=== PATIENT | male | born 2000 | race Caucasian/White ===

== ENCOUNTER 2023-03-11 12:36 | Emergency (ER) | payer BC, OTHER, SELFPAY ==
[2023-03-11 12:56] VITALS: BP 114/79; PULSE 72; RESP 20; TEMP 36.9; O2SAT 98; BMI 24.7
--- NOTE | 2023-03-11 13:23 | CRLHL7_ITS ---
For Patients: As a result of the Century Cures Act, medical imaging exams and procedure reports are released immediately into your electronic medical record. You may view this report before your referring provider. If you have questions, please contact your health care provider. INDICATION: Headache. TECHNIQUE: Noncontrast CT of the head with multiplanar reformat in bone and soft tissue algorithms. COMPARISON: None available. FINDINGS: No acute intracranial hemorrhage. The daly-white matter interface is preserved. The ventricles are normal in size. The skull base and calvarium are within normal limits. Orbits are unremarkable. Paranasal sinuses and mastoid air cells are predominantly clear. IMPRESSION: No acute intracranial abnormality. Please note that all CT scans at this facility use dose modulation, iterative reconstruction, and/or weight-based dosing when appropriate to reduce radiation dose to as low as reasonably achievable. Dictated by Raul Altman MD @ 03/11/2023 2:29:31 PM (Electronically Signed)
--- OUTSIDE RECORDS SUMMARY | 2023-03-11 13:36 | XMS_ITS | Patient Health Record ---
Author Name Unknown Organization [facility] Address [address] [place] [address] Support Name Relationship Address Phone JOSE ALEJANDRO BOLTON Guarantor Unknown ALLERGIES No Known Allergies REASON FOR REFERRAL No Information SOCIAL HISTORY Tobacco Use: Social History Observation Description Date Smoking Status WARNING: Information temporarily unavailable Sex Assigned At : Social History Observation Description Sex Assigned At Unknown Tobacco Use/Smoking Question Answer Notes Are you a nonsmoker PLAN OF TREATMENT No Information Insurance Providers Payer Name Payer Address Payer Phone Subscriber Number Group Number Insured Name Patient Relationship to Insured Coverage Start Date Coverage End Date [facility] [address] [place] [address] [id number] ELIJAH BOLTON Child - Insured has Financial Responsibility
--- NOTE | 2023-03-11 13:52 | ED.GENADULT ---
HPI - General Adult General Date Seen: 03/11/23 Chief complaint: Nausea/Vomiting Stated complaint: vomiting Time Seen by Provider: 03/11/23 13:08 Source: patient Mode of arrival: ambulatory Limitations: no limitations History of Present Illness HPI narrative: Patient is 22 year old male presenting to the emergency department for a headache and nausea/vomiting. Patient states this morning he has developed a headache a neck CT scan worsened describes as the worst headache of his life. States was a 10/10 sharp pain. He took Motrin for it but his nausea was so bad he vomited multiple times since then. States the headache is starting to feel better now but is still severe. Denies ever having headaches like this before. Denies any trauma to his head. Did have a ulnar nerve procedure to his right arm 2 weeks ago with no complications. No other concerns at this time denies fevers, chills, chest pain, shortness of breath, lightheadedness, dizziness, numbness, weakness. Related Data Previous Rx's Medication Instructions Recorded ondansetron 4 mg disintegrating 4 mg PO Q6H #20 tabs 03/11/23 tablet Allergies Allergy/AdvReac Type Severity Reaction Status Date / Time No Known Drug Allergies Allergy Verified 03/04/22 12:42 Review of Systems Status of ROS: Reports: 10 or more systems reviewed and unremarkable except as noted in History and below [facility] Social History Smoking Status: Never smoker Do you use any of these nicotine containing products: None Second hand tobacco smoke exposure: No How often do you have a drink containing alcohol: 2-4 times a month How many standard drinks containing alcohol do you have on a typical day: 3 or 4 How often do you have six or more drinks on one occasion: Less than monthly AUDIT-C Alcohol total score: 4 Non-prescribed substance use: denies use service: No Exam Narrative: Exam Narrative: Const: Well-nourished, Well-developed, in mild distress Eyes: PERRL, no conjunctival injection, and symmetrical lids HENT: Atraumatic external nose and ears. Moist mucous membranes. Neck: Symmetric, trachea midline, No thyromegaly. CVS: RRR, No murmurs or gallops. Peripheral pulses 2+ and equal in all extremities RESP: Unlabored respiratory effort. Clear to auscultation bilaterally. GI: Nontender/Nondistended, No rebound or guarding. MSK:Extremities w/o deformity, Normal Active ROM Skin: Warm, Dry. No rashes or lesions. Neuro: Normal Muscle tone, No focal neurological deficits. Psych: Awake, Alert, & Oriented x3. Appropriate mood and affect. Const: Vital Signs, click to edit/add: Vital Signs - 24 hr 03/11/23 12:56 Temperature 98.4 F Pulse Rate [Pulse Oximeter] 72 Respiratory Rate 20 Blood Pressure [Le ft Upper Arm] 114/79 Pulse Oximetry 98 Oxygen Delivery Me thod Room Air Course Vital Signs Vital signs: Initial Vital Signs Temperature 98.4 F 03/11/23 12:56 Temperature Source Temporal Artery Scan 03/11/23 12:56 Pulse Rate 72 03/11/23 12:56 Pulse Rhythm Regular 03/11/23 12:56 Respiratory Rate 20 03/11/23 12:56 Blood Pressure 114/79 03/11/23 12:56 Blood Pressure Mean 90 03/11/23 12:56 Blood Pressure Position Supine 03/11/23 12:56 Pulse Oximetry 98 03/11/23 12:56 Oxygen Delivery Method Room Air 03/11/23 12:56 Vital Signs Temperature 98.4 F 03/11/23 12:56 Pulse Rate 72 03/11/23 12:56 Respiratory Rate 20 03/11/23 12:56 Blood Pressure 114/79 03/11/23 12:56 Pulse Oximetry 98 03/11/23 12:56 Oxygen Delivery Method Room Air 03/11/23 12:56 Temperature 98.4 F 03/11/23 12:56 Pulse Rate 72 03/11/23 12:56 Respiratory Rate 20 03/11/23 12:56 Blood Pressure 114/79 03/11/23 12:56 Pulse Oximetry 98 03/11/23 12:56 Oxygen Delivery Method Room Air 03/11/23 12:56 Medications Administered Medications: Discontinued Medications Generic Name Dose Route Start Last Admin Trade Name Freq PRN Reason Stop Dose Admin Diphenhydramine HCl 25 mg 03/11/23 13:23 03/11/23 14:03 Diphenhydramine 50 Mg/Ml Inj IVP 03/11/23 13:24 25 mg ONCE ONE Administration Lactated Ringer's 1,000 mls @ 1,000 mls/hr 03/11/23 13:23 03/11/23 14:03 Lactated Ringers 1000 Ml IV 03/11/23 14:22 1,000 mls/hr .Q1H ONE Administration Metoclopramide HCl 10 mg 03/11/23 13:23 03/11/23 14:04 Metoclopramide Hcl 5 Mg/Ml Inj IVP 03/11/23 13:24 10 mg ONCE ONE Administration Medical Decision Making MDM Narrative Medical decision making narrative: Patient is a 22-year-old male presenting to emergency department for headache. Never had headaches like this before and describes as severe 10/10 worse headache of his life. Considering this we to of to rule out a subarachnoid hemorrhage at this time is CT head was ordered. Returned showing no acute abnormalities. Patient was given a migraine cocktail including Benadryl, Reglan, L of fluids he is feeling much better at this time be states symptoms have resolved. I also ordered CBC and BMP. CBC shows slightly elevated white count 12.02. This is most likely secondary to his vomiting as there is not clear signs of infection at this time. Patient's BMP showed no concerning findings. At this time he is doing walking discharged home he is agreeable to this plan. Will be discharged home with Liliya. Lab Data Labs: Lab Results 03/11/23 Range/Units 13:40 WBC 12.02 H (4.50-11.00) K/uL RBC 4.74 (4.30-5.90) m/uL Hgb 14.4 (13.5-17.5) gm/dL Hct 42.3 (37.0-53.0) % MCV 89 (80-100) fL MCH 30 (26-34) pg MCHC 34 (32-36) gm/dL RDW Coeff of Robbin 12.5 (11.5-15.5) % Plt Count 253 (140-440) K/uL Neut % (Auto) 86.4 H (42.0-72.0) % Lymph % (Auto) 8.7 L (20-44) % Blanco % (Auto) 3.9 (0.0-11.0) % Eos % (Auto) 0.7 (0.0-7.0) % Baso % (Auto) 0.2 (0.0-3.0) % Neut # (Auto) 10.40 H (1.7-7.0) K/uL Lymph # (Auto) 1.00 (0.90-2.90) K/uL Blanco # (Auto) 0.50 (0.00-0.90) K/UL Eos # (Auto) 0.10 (0.00-0.50) K/uL Baso # (Auto) 0.00 (0.00-0.30) K/uL Abs Immat Gran (auto) 0.00 (0.00-0.30) K/uL Imm/Tot Granulo (auto) 0.1 % Sodium 139 (135-149) mmol/L Potassium 4.0 (3.6-5.1) mmol/L Chloride 101 (96-114) mmol/L Carbon Dioxide 27 (20-32) mmol/L Anion Gap 11 (7-15) mEq/L BUN 19 (5-24) mg/dL Creatinine 0.7 (0.5-1.5) mg/dL Estimated Creat Clear 190.24 Estimated GFR 135 ml/min Glucose 110 (60-115) mg/dL Calcium 9.9 (8.4-10.6) mg/dL Imaging Data CT scan - head: Radiologist's impression: No acute intracranial abnormality. Please note that all CT scans at this facility use dose modulation, iterative reconstruction, and/or weight-based dosing when appropriate to reduce radiation dose to as low as reasonably achievable. Dictated by Raul Altman MD @ 03/11/2023 2:29:31 PM Discharge Plan Discharge Clinical Impression: Headache Qualifiers: Headache type: unspecified Headache chronicity pattern: acute headache Intractability: not intractable Qualified Code(s): R51.9 - Headache, unspecified Patient Disposition: Home, Self-Care Condition: Improved Instructions: Acute Headache (DC) Additional Instructions: Take Tylenol and ibuprofen for headaches. Take Zofran for any developing nausea. If symptoms persist follow-up with the primary care provider. Return to emerged department for new or worsening symptoms Prescriptions: New ondansetron 4 mg tablet,disintegrating 4 mg PO Q6H Qty: 20 0RF Follow Up/Referrals: Provider,Not a Local [Primary Care Provider] - Stand Alone Forms: Emergent Labs Info Instructions
[2023-03-11 13:56] LABS: Basophils Percent Auto 0.2 % (0.0-3.0); Eosinophils Percent Auto 0.7 % (0.0-7.0); Hematocrit 42.3 % (37.0-53.0); Hemoglobin* 14.4 gm/dL (13.5-17.5); Immature Granulocytes Pct Auto 0.1 %; Lymphocytes Percent Auto 8.7 % (20-44); Mean Corpuscular HGB Conc 34 gm/dL (32-36); Mean Corpuscular Hemoglobin 30 pg (26-34); Mean Corpuscular Volume 89 fL (80-100); Monocytes Percent Auto 3.9 % (0.0-11.0); Neutrophils Percent Auto 86.4 % (42.0-72.0); Platelet Count* 253 K/uL (140-440); RDW Coefficient of Variation % 12.5 % (11.5-15.5); Red Blood Count 4.74 m/uL (4.30-5.90); White Blood Count* 12.02 K/uL (4.50-11.00)
[2023-03-11 14:03] LABS: Slide Review Reflex No
[2023-03-11] MEDS: diphenhydrAMINE 50 MG/ML inj 25 MG IVP (14:03)
[2023-03-11] MEDS: LACTATED RINGERS 1000 ML 1,000 ML IV (14:03)
[2023-03-11] MEDS: METOCLOPRAMIDE HCL 5 MG/ML INJ 10 MG IVP (14:04)
[2023-03-11 14:24] LABS: Chloride* 101 mmol/L (96-114); Sodium* 139 mmol/L (135-149)
[2023-03-11 14:27] LABS: Anion Gap 11 mEq/L (7-15); Blood Urea Nitrogen* 19 mg/dL (5-24); Carbon Dioxide* 27 mmol/L (20-32); Creatinine* 0.7 mg/dL (0.5-1.5); Est. Creatinine Clearance* 190.24; Estimated Glomerular Filt Rate 135 ml/min; Glucose* 110 mg/dL (60-115)
[2023-03-11 14:28] LABS: Calcium* 9.9 mg/dL (8.4-10.6)
[2023-03-11 15:08] VITALS: BP 108/68; PULSE 71; RESP 20; O2SAT 99
== END 2023-03-11 15:12 | disposition home or self-care (01) ==
PROVIDERS: Emergency Provider Student in an Organized Health Care Education/Training Program
DX: R51.9 Headache, unspecified (principal)
CPT/HCPCS: 36415; 70450; 80048; 85025; 96374; 96375; 99283; 99284; J1200; J2765; J7120